=== PATIENT | female | born 1970 | race Caucasian/White ===

== ENCOUNTER 2025-07-17 00:25 | Emergency (ER) | payer BC, SELFPAY ==
[2025-07-17 00:29] VITALS: BP 187/108
[2025-07-17 00:51] VITALS: BP 164/110
[2025-07-17 01:00] VITALS: BP 180/99
[2025-07-17 01:12] LABS: Hematocrit 43.8 % (37.0-47.0); Hemoglobin 14.6 g/dL (12.0-16.0); Mean Corp Hgb Conc. 33.3 g/dL (33.0-37.0); Mean Corpuscular Volume 86.4 fL (81.0-99.0); Nucleated Red Blood Cells % 0 %; Platelet Count 316 10^3/uL (130-400); Red Cell Dist. Width 13.3 % (11.5-14.5)
[2025-07-17 01:33] LABS: ALT (SGPT) 28 U/L (0-35); AST (SGOT) 37 U/L (14-36); Albumin 4.8 g/dl (3.5-5.0); Alkaline Phosphatase 63 U/L (38-126); Blood Urea Nitrogen 21 mg/dl (7-17); Calcium 10.0 mg/dl (8.4-10.2); Carbon Dioxide 25 mmol/L (22-30); Chloride 106 mmol/L (98-107); Glucose 103 mg/dl (70-99); Potassium 4.2 mmol/L (3.5-5.1); Sodium 140 mmol/L (135-145); Total Protein 7.9 g/dl (6.3-8.2); eGFR > 60.00
[2025-07-17] MEDS: NSS 1000 IV (01:34)
[2025-07-17 01:46] LABS: Troponin I 0.033 ng/ml
[2025-07-17 02:00] VITALS: BP 161/101
[2025-07-17 03:00] VITALS: BP 151/86
[2025-07-17 03:41] LABS: Troponin I 0.016 ng/ml
[2025-07-17 03:44] LABS: Lipase 165 U/L (23-300)
--- NOTE | 2025-07-17 03:59 | ED.GENMED ---
History of Present Illness
General
Chief Complaint: Heart Rate Problem
Source: patient and spouse
Exam Limitations: none
Time Seen by Provider: 07/17/25 00:39
Nursing documentation reviewed up to this point in time: agreed with
History of Present Illness
History of Present Illness:
Note:
CHIEF COMPLAINT(S)
Palpitations and difficulty breathing.
HISTORY OF PRESENT ILLNESS
The patient is a 54-year-old female presenting with a history of palpitations that began around 10:00 PM. She reports having similar episodes approximately six years ago, which required evaluation at the emergency department. At that time, an X-ray
and electrocardiogram were performed, showing no acute abnormalities, but her heart rate and blood pressure could not be initially controlled. The patient was placed on a heart monitor and was later discharged with follow-up. During the previous
episode, the patient recalls the flexographic printing machinist indicating there was a concerning area but ultimately found it satisfactory enough not to warrant immediate recall.
The patient does not associate palpitations with physical activity and has no regular patterns or triggers. The patient consumes coffee, roughly 16 ounces daily, but denies using other stimulants such as energy drinks or significant chocolate
intake, only noting minor consumption with coffee and chocolate chips. She sometimes experiences shortness of breath that resolves quickly. The patient experiences occasional sharp chest pain, believed to be musculoskeletal, and has had radiating
pain across the chest and back once, accompanied by severe indigestion during [place].
Her flexographic printing machinist is Dr. Moy, as she wishes to continue her follow-up with them. Since arriving at the facility, no premature ventricular contractions have been noted. The patients blood pressure is slightly elevated, and the heart rate is on
the higher side. She reports no dizziness upon standing and no leg swelling.
PAST MEDICAL AND SURGICAL HISTORY
The patient notes a previous visit to the emergency room due to palpitations roughly six years ago.
CHRONIC MEDICAL CONDITIONS SIGNIFICANTLY AFFECTING CARE
The patient discusses monitoring her cholesterol levels with her doctor every six months.
SOCIAL HISTORY
The patient denies smoking and consuming alcohol. She discusses her sleep habits with her physician.
REVIEW OF SYSTEMS
- Cardiovascular: Reports palpitations and occasional sharp non-exertional chest pain.
- Respiratory: Sometimes experiences shortness of breath that resolves quickly.
- Digestive: Occasional severe indigestion.
- Overall: Denies dizziness or leg swelling.
PHYSICAL EXAM
General: Alert, no acute distress.
Skin: Warm, dry.
Head: Normocephalic, atraumatic.
Neck: Supple, trachea midline.
Eyes, Ears, Nose, Mouth, and Throat: Oral mucosa moist.
Cardiovascular: Normal peripheral perfusion, No edema.
Respiratory: Respirations are non-labored.
Gastrointestinal: Abdomen nondistended.
Back: Normal range of motion, Normal alignment.
Musculoskeletal: Normal range of motion, normal strength.
Neurological: Alert and oriented to person, place, time, and situation, No focal neurological deficit observed.
Psychiatric: Cooperative, appropriate mood & affect.
PLAN
Await lab results. Initiate fluid administration to address elevated heart rate and blood pressure.
DIFFERENTIAL DIAGNOSIS
The Differential Diagnosis includes, in no particular order and is not limited to:
1. Atrial Fibrillation
2. Supraventricular Tachycardia
3. Myocardial Ischemia
4. Panic Disorder
5. Hyperthyroidism
6. Heart Failure
7. Anemia
8. Valvular Heart Disease
9. Electrolyte Imbalance
10. Anxiety Disorder
EKG
My independent EKG interpretation is:
- Time of EKG: Not specified
- Rhythm: Normal rhythm with premature beats (PBCs present)
- Heart Rate: Not specified
- Notable Intervals: Normal intervals
- Cerrillos: Normal axis
- Abnormalities Observed: No evidence of acute ischemia
- Comparison: No previous EKG available for comparison
EKG
My independent EKG interpretation is:
- Date and Time of EKG: July 17, 2012, at 4 a.m.
- Rhythm: Normal
- Heart Rate: 85 beats per minute
- Cerrillos: Normal
- Abnormalities: No evidence of acute ST segment changes
- Additional Observations: Similar morphology to previous EKG; No PVCs present
Disposition:
SUMMARY OF ENCOUNTER
The patient, a 54-year-old female, presented to the emergency department with complaints of palpitations earlier tonight. She has a past history of similar episodes. She is under the care of Dr. Rivers, a flexographic printing machinist. On examination, she denied
chest pain or shortness of breath and was asymptomatic by the time of evaluation. Initial troponin levels were slightly elevated but showed significant decrease on subsequent testing. EKG demonstrated normal rhythm.
PLAN
Monitor the patients troponin levels overnight to ensure they remain stable. If levels normalize, she will likely be safe for discharge with instructions to follow up with her flexographic printing machinist, Dr. Rivers.
INDEPENDENT REVIEW OF LABS AND INTERPRETATION OF TESTS
My independent review of troponin levels indicates initial elevation with subsequent normalization.
My independent EKG interpretation indicates a normal rhythm.
MEDICAL DECISION MAKING
1. Number and Complexity of Problems Addressed: Chronic conditions affecting care include a past history of palpitations.
DDx list: Atrial Fibrillation, Supraventricular Tachycardia, Myocardial Ischemia, Panic Disorder, Hyperthyroidism, Heart Failure, Anemia, Valvular Heart Disease, Electrolyte Imbalance, Anxiety Disorder.
2. Data:
Category 1: My independent interpretation of EKG indicates a normal rhythm.
Category 3: The patients management plan and ongoing monitoring were discussed, given the normalization of troponin levels and current stable condition.
DIAGNOSIS
Palpitations, R00.2
Elevated Troponin, R79.82
Review of Systems
Review of Systems
Allergies reviewed?: Yes
Other source history: family
All Other Systems: ROS reviewed and negative except as documented in HPI and ROS
Cardiac: Reports palpitations
Phy Exam
General Physical Exam
General Presentation: well appearing
General age: appears stated age
General Skin: warm and dry
General Habitus: normal
General Mental: alert
General Hydration: appears well hydrated
Cardiovascular Exam
Cardiovascular Exam: regular rate/rhythm and no edema
Pulmonary Exam
Pulmonary Exam: lungs clear and no respiratory distress
Musculoskeletal Exam
Musculoskeletal Exam: full ROM and no edema
Skin Exam
Skin Exam: normal color and warm/dry
Psychiatric Exam
Psychiatric Exam: normal mood/affect
Course
Orders/Labs/Results
Orders:
Orders
07/17/25 00:36
Electrocardiogram (*1) Urgent
Reason for Study: Other
Other Reason for Exam: Respiratory Distress
Cardiac Monitoring- Treatment ONCE
EKG- Treatment ONCE
CR Chest - 2 Views Urgent
Comment:
Reason For Exam: respiratory distress
O2 Therapy [RESP] Urgent
Titrate/Wean O2 to maintain O2 sat greater than (%): 93
Special Instructions: TO MAINTAIN CONTINUOUS O2 SATS >/= 93%
Pulse Ox/cont/shift [RESP] Urgent
Quantity: 1
Special Instructions: continuous pulse ox
07/17/25 00:56
Complete Blood Count/With Diff Urgent
Comprehensive Metabolic Panel Urgent
Lipase Urgent
Comment: ADD ON
Troponin I Urgent
07/17/25 01:34
0.9% Sodium Chloride 1000 ml [Nss] 1,000 ml IV BOLUS
07/17/25 02:21
EKG- Treatment ONCE
07/17/25 02:41
Troponin I Urgent
07/17/25 03:00
Electrocardiogram (*1) Urgent
Reason for Study: Chest Pain
07/17/25 03:08
Add On- LAB Urgent
Tests Added?: lipase
Abnormal Lab Results
07/17/25
00:56
Absolute Lymphs (auto) 3.5 H 10^3/uL
(1.2-3.4)
Absolute Monos (auto) 0.7 H 10^3/uL
(0.1-0.6)
BUN 21 H mg/dl
(7-17)
Glucose 103 H mg/dl
(70-99)
AST 37 H U/L
(14-36)
07/17/25 00:56
07/17/25 00:56
Vital Signs
Initial and Last Documented VS:
Initial Vital Signs
Temp Pulse Resp BP Pulse Ox
98.5 F 79 20 187/108 100
07/17/25 00:29 07/17/25 00:29 07/17/25 00:29 07/17/25 00:29 07/17/25 00:29
Last Documented Vital Signs
Temp Pulse Resp BP Pulse Ox
98.5 F 89 10 151/86 96
07/17/25 00:29 07/17/25 03:00 07/17/25 03:00 07/17/25 03:00 07/17/25 04:00
*Radiology
Radiology exam reviewed: all reviewed NAD by ED Provider
*Pulse Oximetry
SaO2: 96
Oxygen Mode of Delivery: Room air
Patient hypoxic: no
*Critical Care Note
Total Time (30-74mins, 75-104mins- exclusive of procedures): Not Applicable
ED Attending Note
-
Portions of this chart may have been created with voice recognition software.� Occasional wrong word or��sound alike� substitutions may have occurred due to the inherent limitations of voice recognition software.
Discharge Plan
Departure
Patient Disposition: Home (Routine Discharge)
Date of Disposition: 07/17/25
Time of Disposition: 04:07
Patient with high blood pressure during this ER visit?: Yes
Condition: Good
Discharge Problem:
Palpitations
Instructions: Palpitations (DC), BLOOD PRESSURE
Referrals:
Corrina Wilkins MD [Family Provider]
Activity Restrictions/Additional Instructions:
Thank You for choosing [facility].
It was a pleasure meeting you and taking part in your care. We hope for your continued healing and wellness.
Please read discharge instructions in their entirety. However, they are for general education and may not describe your exact diagnosis at discharge. Information on your ER visit and medical conditions were discussed with you along with appropriate
follow up information...
If indicated, please take your medications as instructed and indicated on discharge paperwork.
Please schedule a follow up appointment as directed. Call to schedule an appointment
Please return to the emergency department with ANY change in, persisting, or worsening of symptoms. If any of your symptoms do not improve, or persist, or become more severe within 6-12 hours, please return to the emergency department for further
care.
Please return to the emergency department if you develop a headache, neck pain/stiffness, fever greater than 100.4F, chest pain, shortness of breath, persistent nausea, vomiting, slurred speech, difficulty walking, numbness/tingling, weakness, signs
of infection or any other symptoms that are worrisome to you.
If you have any questions or concerns please do not hesitate to call the Hospital at or E-mail me directly at [email or web address]
Interventions
Interventions:
*Risk Screen - Suicide Last Done: 07/17/25 00:29
*General Assessment Last Done: 07/17/25 00:29
*Neglect/Abuse Screening Last Done: 07/17/25 00:29
*ED- Fall Risk Assessment Last Done: 07/17/25 00:29
*ED COVID-19 Vaccine History Last Done: 07/17/25 00:29
ED- Cardiac Assessment Last Done: 07/17/25 00:59
ED- Pulmonary Assessment Last Done: 07/17/25 00:59
Discharge Date and Time
Print Language: GHANAIAN
[2025-07-17 04:00] VITALS: BP 133/91
== END 2025-07-17 04:20 | disposition home or self-care (01) ==
LOC: EMR 00:25
PROVIDERS: EMERGENCY PHYSICIAN Student in an Organized Health Care Education/Training Program; FAMILY PHYSICIAN Family Medicine
DX: R00.2 Palpitations (principal)
CPT/HCPCS: 99283; 96360; 71046; 80053; 83690; 84484; 85025; 93005